=== PATIENT | male | born 1935 | race Caucasian/White ===

== ENCOUNTER 2016-05-17 20:59 | Inpatient (IN) | payer MEDICARE, OTHER ==
[~2016-05-17] VITALS: Ht 185.4 cm; Wt 85.3 kg
[~2016-05-17 20:59] MED LIST: ALPRAZOLAM0.5 MG PO; ASPIRIN EC81 MG PO; BETAPACE160 MG PO; CEFTIN250 MG/5 M PO; DALIRESP500 MCG PO; ELIQUIS5 MG PO; FLOMAX 0.4 MG0.4 MG PO; FLONASE 0.05% N16 GM; MOBIC7.5 MG PO; NITROGLYCERIN2.5 M1 PO; NITROSTAT0.4 MG SL; NYSTATIN100000 UNI PO; PLAVIX75 MG PO; PROAIR HFA8.5 GM INH; PROTONIX 40 MG40 M1 PO; SPIRIVA18 MCG INH; SYMBICORT 16010.2 GM INH
[2016-05-17 22:12] LABS: HEMOGLOBIN 11.9 gm/dl (14.0-17.5); RED BLOOD COUNT 4.31 M/UL (4.20-5.50)
[2016-05-18 07:33] LABS: HEMOGLOBIN 10.4 gm/dl (14.0-17.5)
[2016-05-19 03:54] LABS: HEMOGLOBIN 9.9 gm/dl (14.0-17.5); WHITE BLOOD COUNT 4.9 K/UL (4.5-11.0)
[2016-05-19 03:56] LABS: RED BLOOD COUNT 3.68 M/UL (4.20-5.50)
[2016-05-19 04:14] LABS: BUN/CREATININE RATIO 14 (0-10)
[2016-05-19] MEDS ORDERED: CEFTIN250 MG/5 M PO (18:07)
[2016-05-19] MEDS ORDERED: MEDROL DOSEPAK 24 MG PO (18:11)
== END 2016-05-19 18:50 | disposition home health service (06) | DRG 309 ==
LOC: ER1 20:59 → ZEROF 05-18 02:40 → CCU 05-18 02:40
PROVIDERS: Emergency Medicine; Physician Assistant; ADMIT Internal Medicine
DX: I48.0 Paroxysmal atrial fibrillation (principal); J44.0 Chronic obstructive pulmonary disease with (acute) lower respiratory infection; I49.5 Sick sinus syndrome; I95.9 Hypotension, unspecified; I25.10 Atherosclerotic heart disease of native coronary artery without angina pectoris; J20.9 Acute bronchitis, unspecified; E78.5 Hyperlipidemia, unspecified; G47.36 Sleep related hypoventilation in conditions classified elsewhere; F17.210 Nicotine dependence, cigarettes, uncomplicated; N40.0 Benign prostatic hyperplasia without lower urinary tract symptoms; K21.9 Gastro-esophageal reflux disease without esophagitis; F41.9 Anxiety disorder, unspecified; D64.9 Anemia, unspecified; Z95.5 Presence of coronary angioplasty implant and graft; Z95.0 Presence of cardiac pacemaker; I10 Essential (primary) hypertension; Z80.42 Family history of malignant neoplasm of prostate; Z88.0 Allergy status to penicillin; Z79.899 Other long term (current) drug therapy; Z79.02 Long term (current) use of antithrombotics/antiplatelets; Z79.82 Long term (current) use of aspirin; R55 Syncope and collapse; R42 Dizziness and giddiness; Z80.9 Family history of malignant neoplasm, unspecified; Z98.890 Other specified postprocedural states; R53.1 Weakness; E87.6 Hypokalemia
CPT/HCPCS: ECHO; 36415; 70450; 71010; 80048; 80053; 80061; 81001; 82272; 82550; 82553; 83605; 83735; 83874; 84439; 84443; 84484; 85014; 85018; 85025; 85027; 85610; 85730; 87040; 87081; 87086; 87880; 93005; 93306; 94640; 94664; 96361; 96374; 96375; 99285; C9113; J0696; J7030; J7050

== ENCOUNTER 2016-05-22 04:08 | Inpatient (IN) | payer MEDICARE, SELFPAY ==
[~2016-05-22] VITALS: Ht 185.4 cm; Wt 84.5 kg
[~2016-05-22 04:08] MED LIST changes: +MEDROL DOSEPAK 24 MG PO
[2016-05-22 04:48] LABS: HEMOGLOBIN 12.3 gm/dl (14.0-17.5); RED BLOOD COUNT 4.47 M/UL (4.20-5.50); WHITE BLOOD COUNT 8.2 K/UL (4.5-11.0)
[2016-05-22 05:03] LABS: BUN/CREATININE RATIO 16 (0-10)
[2016-05-23 03:54] LABS: WHITE BLOOD COUNT 7.8 K/UL (4.5-11.0)
[2016-05-23 04:04] LABS: HEMOGLOBIN 10.2 gm/dl (14.0-17.5); RED BLOOD COUNT 3.81 M/UL (4.20-5.50)
[2016-05-23 04:05] LABS: BUN/CREATININE RATIO 24 (0-10)
[2016-05-24 04:57] LABS: BUN/CREATININE RATIO 31 (0-10)
[2016-05-25 04:09] LABS: BUN/CREATININE RATIO 33 (0-10)
[2016-05-25] MEDS ORDERED: LANOXIN TAB 00.25 MG PO (11:04)
== END 2016-05-25 13:31 | disposition home or self-care (01) | DRG 189 ==
LOC: ER1 04:08 → ZEROF 05:07 → PROG CARE 05:07
PROVIDERS: Family Medicine; Internal Medicine Infectious Disease; ADMIT Internal Medicine
PROC: 5A09357 Assistance with Respiratory Ventilation, Less than 24 Consecutive Hours, Continuous Positive Airway Pressure (ICD-10-PCS; principal; 2016-05-22)
DX: J96.01 Acute respiratory failure with hypoxia (principal); J44.1 Chronic obstructive pulmonary disease with (acute) exacerbation; J44.0 Chronic obstructive pulmonary disease with (acute) lower respiratory infection; J96.02 Acute respiratory failure with hypercapnia; I48.0 Paroxysmal atrial fibrillation; I49.5 Sick sinus syndrome; Z95.0 Presence of cardiac pacemaker; I25.10 Atherosclerotic heart disease of native coronary artery without angina pectoris; Z95.5 Presence of coronary angioplasty implant and graft; K21.9 Gastro-esophageal reflux disease without esophagitis; E78.5 Hyperlipidemia, unspecified; Z79.82 Long term (current) use of aspirin; Z79.01 Long term (current) use of anticoagulants; Z79.899 Other long term (current) drug therapy; Z88.0 Allergy status to penicillin; N40.0 Benign prostatic hyperplasia without lower urinary tract symptoms; F41.9 Anxiety disorder, unspecified; Z80.42 Family history of malignant neoplasm of prostate; Z80.9 Family history of malignant neoplasm, unspecified; F17.210 Nicotine dependence, cigarettes, uncomplicated; J20.9 Acute bronchitis, unspecified
CPT/HCPCS: 36415; 36600; 71010; 71020; 80048; 80053; 82550; 82553; 82803; 83735; 83874; 83880; 84484; 85025; 85027; 93005; 94640; 94660; 94664; 96365; 96375; 99285; J1160; J1940; J1956; J2920; J2930

== ENCOUNTER → 2016-05-27 | Outpatient (CLI) | payer MEDICARE ==
[~2016-05-27] MED LIST changes: +LANOXIN TAB 00.25 MG PO
[2016-05-27 14:40] LABS: HEMOGLOBIN 10.6 gm/dl (14.0-17.5); RED BLOOD COUNT 3.93 M/UL (4.20-5.50); WHITE BLOOD COUNT 7.3 K/UL (4.5-11.0)
[2016-05-27 15:06] LABS: BUN/CREATININE RATIO 17 (0-10)
== END ==
LOC: LAB 14:00
PROVIDERS: Internal Medicine Cardiovascular Disease
DX: I48.91 Unspecified atrial fibrillation (principal); R00.2 Palpitations; R06.02 Shortness of breath; E78.5 Hyperlipidemia, unspecified; I49.5 Sick sinus syndrome; I95.9 Hypotension, unspecified; R42 Dizziness and giddiness; R53.1 Weakness; Z88.0 Allergy status to penicillin
CPT/HCPCS: 36415; 80048; 80162; 85025

== ENCOUNTER → 2016-06-18 | Outpatient (CLI) | payer MEDICARE | LOC: KOH-I 06-14 15:00 → CT 07:56 → KOH-I 08:00 | DX: R10.817 Generalized abdominal tenderness (principal) ==

== ENCOUNTER → 2016-06-23 | Outpatient (CLI) | payer MEDICARE, SELFPAY | LOC: CT 08:00 | DX: R10.817 Generalized abdominal tenderness (principal); R11.2 Nausea with vomiting, unspecified; R63.4 Abnormal weight loss; R91.8 Other nonspecific abnormal finding of lung field | CPT/HCPCS: 74160; J7050; Q9962 ==